=== PATIENT | female | born 1980 | race Caucasian/White ===

== ENCOUNTER 2022-10-18 16:18 | Emergency (ER) | payer OTHER ==
[2022-10-18 16:37] VITALS: BP 156/79; PULSE 103; RESP 20; TEMP 98.7; BMI 37.4
[2022-10-18] MEDS ORDERED: ACETAMINOPHEN 1000 MG/100 ML BAG IVPB ONE (17:13)
[2022-10-18] MEDS ORDERED: ONDANSETRON 4 MG/2 ML VIAL IVPUSH ONE (17:13)
[2022-10-18] MEDS ORDERED: SODIUM CHLORIDE 0.9% 500 ML INFUS.BAG IV ONE (17:13)
[2022-10-18] MEDS ORDERED: ACETAMINOPHEN INJECTION 100 ML IVPB ONE (17:34)
[2022-10-18] MEDS ORDERED: ONDANSETRON 4 MG/2 ML VIAL ONE (17:34)
[2022-10-18 18:13] LABS: BASO % 0.2 % (0-2.0); EOS % 0.8 % (0-4.5); HEMATOCRIT 40.2 % (32.4-45.2); HEMOGLOBIN 13.8 GM/dL (10.7-15.3); LYMPH % 37.1 % (8-40); MCHC 34.3 g/dl (32.0-36.0); MEAN CELL VOLUME 81.7 fl (80-96); MEAN PLT VOLUME 9.9 fl (7.5-11.1); MONO % 6.6 % (3.8-10.2); NEUT % 55.3 % (42.8-82.8); PLATELET COUNT 241 10^3/uL (134-434); RBC 4.92 M/mm3 (3.60-5.2); RDW 13.8 % (11.6-15.6); WHITE BLOOD COUNT 7.1 K/mm3 (4.0-10.0)
[2022-10-18 18:33] LABS: ALBUMIN 3.9 g/dl (3.4-5.0); BLOOD UREA NITROGEN 9.2 mg/dL (7-18); CALCIUM 9.8 mg/dL (8.5-10.1)
[2022-10-18 18:36] LABS: CREATININE 0.7 mg/dL (0.55-1.3)
[2022-10-18 18:38] LABS: BILIRUBIN,TOTAL 0.5 mg/dL (0.2-1)
[2022-10-18] MEDS ORDERED: KETOROLAC TROMETHAMINE 30 MG/1 ML VIAL IVPUSH ONE (21:49)
[2022-10-18] MEDS ORDERED: KETOROLAC TROMETHAMINE 30 MG/1 ML VIAL ONE (21:56)
[2022-10-18 22:11] LABS: EPI CELLS 25 /uL (0-25.1); HYALINE CASTS 0 /uL (0-3.1); PH,URINE 6.5 (5.0-8.0); URINE APPEARANCE CLEAR; URINE BACTERIA 504 /uL (0-1359); URINE BILIRUBIN NEGATIVE (NEGATIVE); URINE COLOR YELLOW; URINE GLUCOSE (UA) 3+ (NEGATIVE); URINE KETONE 2+ (NEGATIVE); URINE LEUK ESTERASE TRACE (NEGATIVE); URINE NITRITE NEGATIVE (NEGATIVE); URINE PROTEIN NEGATIVE (NEGATIVE); URINE RBC 13 /uL (0-23.9); URINE UROBILINOGEN 0.2 mg/dL (0.2-1.0); URINE WBC 47 /uL (0-25.8)
== END 2022-10-18 23:55 | disposition home or self-care (01) ==
LOC: JER 16:18
PROC: 3E033NZ Introduction of Analgesics, Hypnotics, Sedatives into Peripheral Vein, Percutaneous Approach (ICD-10-PCS; principal; 2022-10-18)
PROC: 3E033GC Introduction of Other Therapeutic Substance into Peripheral Vein, Percutaneous Approach (ICD-10-PCS; 2022-10-18)
PROC: 3E033GC Introduction of Other Therapeutic Substance into Peripheral Vein, Percutaneous Approach (ICD-10-PCS; 2022-10-18)
DX: N83.202 Unspecified ovarian cyst, left side (principal); K57.90 Diverticulosis of intestine, part unspecified, without perforation or abscess without bleeding; R11.2 Nausea with vomiting, unspecified; R10.9 Unspecified abdominal pain
CPT/HCPCS: 36415; 74177-TC; 80053; 81003; 83690; 84703; 85025; 87086; 87186; 99285-25; Q9967

== ENCOUNTER 2023-04-30 16:32 | Observation (INO) | payer OTHER ==
[2023-04-30 16:45] VITALS: BMI 37.8
[2023-04-30 18:06] LABS: EPI CELLS 16 /uL (0-25.1); HYALINE CASTS 0 /uL (0-3.1); PH,URINE 6.5 (5.0-8.0); URINE APPEARANCE CLEAR; URINE BACTERIA 332 /uL (0-1359); URINE BILIRUBIN NEGATIVE (NEGATIVE); URINE COLOR YELLOW; URINE GLUCOSE (UA) 3+ (NEGATIVE); URINE KETONE NEGATIVE (NEGATIVE); URINE LEUK ESTERASE TRACE (NEGATIVE); URINE NITRITE NEGATIVE (NEGATIVE); URINE PROTEIN NEGATIVE (NEGATIVE); URINE RBC 4 /uL (0-23.9); URINE WBC 19 /uL (0-25.8)
[2023-04-30 18:08] LABS: BASO % 0.6 % (0-2.0); EOS % 1.3 % (0-4.5); HEMATOCRIT 38.9 % (32.4-45.2); LYMPH % 33.1 % (8-40); MCHC 33.3 g/dl (32.0-36.0); MEAN CELL VOLUME 84.1 fl (80-96); MEAN PLT VOLUME 10.6 fl (7.5-11.1); MONO % 6.2 % (3.8-10.2); NEUT % 58.8 % (42.8-82.8); PLATELET COUNT 246 10^3/uL (134-434); RBC 4.62 M/mm3 (3.60-5.2); RDW 13.4 % (11.6-15.6); WHITE BLOOD COUNT 8.4 K/mm3 (4.0-10.0)
[2023-04-30 18:30] LABS: ALBUMIN 3.8 g/dl (3.4-5.0); BLOOD UREA NITROGEN 12.2 mg/dL (7-18)
[2023-04-30 18:33] LABS: CREATININE 0.5 mg/dL (0.55-1.3)
[2023-04-30 18:35] LABS: BILIRUBIN,TOTAL 0.3 mg/dL (0.2-1); TOT PROT 7.6 g/dl (6.4-8.2)
[2023-04-30] MEDS ORDERED: SODIUM CHLORIDE 0.9% 500 ML INFUS.BAG IV ONE ×2 (18:42→20:48)
[2023-05-01] MEDS: LACTATED RINGERS SOLUTION 1,000 ML/1,000 ML INFUS.BAG IV SCH (02:51)
[2023-05-01 08:25] LABS: CHOLESTEROL 122 mg/dL (50-200)
[2023-05-01 08:26] LABS: LDL CHOLESTEROL (ONLY SJRH) 57 mg/dL (5-100)
[2023-05-01] MEDS: INSULIN SLIDING SCALE (NOVOLOG) 1 VIAL SQ SCH ×4 (08:26→21:57)
[2023-05-01 08:28] LABS: HDL CHOLESTEROL 56 mg/dL (40-60)
[2023-05-01] MEDS ORDERED: INSULIN REGULAR HUMAN 100 UNITS/ML *VIAL ONE (08:29)
[2023-05-01 08:36] LABS: POTASSIUM 4.3 mmol/L (3.5-5.1)
[2023-05-01 08:42] LABS: CALCIUM 8.1 mg/dL (8.5-10.1)
[2023-05-01 08:43] LABS: ALBUMIN 3.1 g/dl (3.4-5.0); BLOOD UREA NITROGEN 8.3 mg/dL (7-18); MAGNESIUM 1.9 mg/dL (1.8-2.4)
[2023-05-01 08:46] LABS: BASO % 0.2 % (0-2.0); CREATININE 0.4 mg/dL (0.55-1.3); EOS % 1.4 % (0-4.5); HEMATOCRIT 35.8 % (32.4-45.2); HEMOGLOBIN 12.2 GM/dL (10.7-15.3); LYMPH % 36.1 % (8-40); MCH 28.3 pg (25.7-33.7); MCHC 34.2 g/dl (32.0-36.0); MEAN CELL VOLUME 82.7 fl (80-96); MEAN PLT VOLUME 10.9 fl (7.5-11.1); MONO % 6.9 % (3.8-10.2); NEUT % 55.4 % (42.8-82.8); PHOSPHOROUS 2.7 mg/dL (2.5-4.9); PLATELET COUNT 200 10^3/uL (134-434); RBC 4.33 M/mm3 (3.60-5.2); RDW 13.5 % (11.6-15.6); WHITE BLOOD COUNT 8.4 K/mm3 (4.0-10.0)
[2023-05-01 08:47] LABS: BILIRUBIN,TOTAL 0.5 mg/dL (0.2-1); TOT PROT 6.3 g/dl (6.4-8.2)
[2023-05-01 09:38] LABS: EPI CELLS 35 /uL (0-25.1); HYALINE CASTS 0 /uL (0-3.1); URINE APPEARANCE CLEAR; URINE BACTERIA 1435 /uL (0-1359); URINE BILIRUBIN NEGATIVE (NEGATIVE); URINE COLOR YELLOW; URINE GLUCOSE (UA) 1+ (NEGATIVE); URINE KETONE NEGATIVE (NEGATIVE); URINE LEUK ESTERASE 1+ (NEGATIVE); URINE NITRITE NEGATIVE (NEGATIVE); URINE PROTEIN NEGATIVE (NEGATIVE); URINE RBC 2 /uL (0-23.9); URINE UROBILINOGEN 0.2 mg/dL (0.2-1.0); URINE WBC 19 /uL (0-25.8)
[2023-05-01] MEDS: ENOXAPARIN NA (PORCINE) 40 MG/0.4 ML DISP.SYRIN SQ SCH (09:38)
[2023-05-01] MEDS ORDERED: ENOXAPARIN NA (PORCINE) 40 MG/0.4 ML DISP.SYRIN SQ ONE (09:40)
[2023-05-02] MEDS: LACTATED RINGERS SOLUTION 1,000 ML/1,000 ML INFUS.BAG IV SCH (02:09)
[2023-05-02] MEDS ORDERED: ONDANSETRON 4 MG/2 ML VIAL IVPUSH PRN (08:14)
[2023-05-02] MEDS: INSULIN SLIDING SCALE (NOVOLOG) 1 VIAL SQ SCH ×2 (08:33→11:03)
[2023-05-02] MEDS ORDERED: LACTATED RINGERS SOLUTION 1,000 ML/1,000 ML INFUS.BAG IV SCH (09:34)
[2023-05-02] MEDS: ENOXAPARIN NA (PORCINE) 40 MG/0.4 ML DISP.SYRIN SQ SCH (11:02)
[2023-05-02 12:54] VITALS: TEMP 98.2
[2023-05-02 14:06] LABS: POTASSIUM 3.9 mmol/L (3.5-5.1)
[2023-05-02 14:08] LABS: CALCIUM 9.1 mg/dL (8.5-10.1)
[2023-05-02 14:09] LABS: ALBUMIN 3.4 g/dl (3.4-5.0); BLOOD UREA NITROGEN 7.8 mg/dL (7-18)
[2023-05-02 14:12] LABS: CREATININE 0.6 mg/dL (0.55-1.3)
[2023-05-02 14:13] LABS: BILIRUBIN,TOTAL 0.6 mg/dL (0.2-1)
[2023-05-02 14:14] LABS: TOT PROT 7.4 g/dl (6.4-8.2)
[2023-05-02] MEDS ORDERED: PANTOPRAZOLE SODIUM 40 MG VIAL IVPUSH ONE (16:27)
[2023-05-02 17:31] VITALS: BP 140/80; PULSE 74; RESP 16
== END 2023-05-02 17:32 | disposition home or self-care (01) ==
LOC: JER 16:32 → JERBED 20:48
PROVIDERS: ADMIT Internal Medicine; ATTEND Internal Medicine
PROC: 3E023GC Introduction of Other Therapeutic Substance into Muscle, Percutaneous Approach (ICD-10-PCS; principal; 2023-04-30)
PROC: 3E013VG Introduction of Insulin into Subcutaneous Tissue, Percutaneous Approach (ICD-10-PCS; 2023-04-30)
PROC: 3E0337Z Introduction of Electrolytic and Water Balance Substance into Peripheral Vein, Percutaneous Approach (ICD-10-PCS; 2023-04-30)
PROC: 3E033NZ Introduction of Analgesics, Hypnotics, Sedatives into Peripheral Vein, Percutaneous Approach (ICD-10-PCS; 2023-04-30)
DX: K85.90 Acute pancreatitis without necrosis or infection, unspecified (principal); E11.65 Type 2 diabetes mellitus with hyperglycemia; R10.31 Right lower quadrant pain; R94.8 Abnormal results of function studies of other organs and systems; E66.8 Other obesity; K76.0 Fatty (change of) liver, not elsewhere classified; E78.1 Pure hyperglyceridemia; N83.202 Unspecified ovarian cyst, left side; Z79.84 Long term (current) use of oral hypoglycemic drugs
CPT/HCPCS: 36415; 74177-TC; 76705-TC; 80053; 80061; 81003; 82962; 83036; 83690; 83735; 84100; 84703; 85025; 87086; 93005; 93010; 96360; 96361; 96372; 96374; 99285-25; G0378

== ENCOUNTER 2023-07-28 15:29 | Emergency (ER) | payer OTHER ==
[2023-07-28 15:42] VITALS: BP 150/81; RESP 17; TEMP 98.5; BMI 35.6
[2023-07-28] MEDS ORDERED: ACETAMINOPHEN 500 MG TABLET (FP) PO ONE (18:31)
[2023-07-28] MEDS ORDERED: DIPHTH,PERTUSS(ACELL),TET 0.5 ML DISP.SYRIN IM ONE ×3 (18:31→18:34)
[2023-07-28] MEDS ORDERED: ACETAMINOPHEN 500 MG TABLET (FP) ONE (18:32)
[2023-07-28 19:15] VITALS: PULSE 80
== END 2023-07-28 19:14 | disposition home or self-care (01) ==
LOC: JERFT 15:29
DX: S61.402A Unspecified open wound of left hand, initial encounter (principal); M25.532 Pain in left wrist; W18.39XA Other fall on same level, initial encounter
CPT/HCPCS: 73110-TC-RT-FY; 73130-TC-RT-FY; 90715; 99283-25

== ENCOUNTER 2024-03-30 16:06 | Emergency (ER) | payer OTHER ==
[2024-03-30 16:16] VITALS: BP 127/83; PULSE 99; RESP 16; TEMP 98.6; BMI 34.9
[2024-03-30] MEDS ORDERED: IBUPROFEN 600 MG TABLET (FP) PO ONE (17:33)
[2024-03-30] MEDS ORDERED: AMOX TR/POT CLAV 875MG/125MG TABLETS (FP) ONE (17:34)
[2024-03-30] MEDS ORDERED: DIPHTH,PERTUSS(ACELL),TET 0.5 ML DISP.SYRIN IM ONE (17:34)
[2024-03-30] MEDS: IBUPROFEN 600 MG TABLET (FP) PO ONE (17:43)
[2024-03-30] MEDS: AMOX TR/POT CLAV 875MG/125MG TABLETS (FP) PO ONE (17:44)
[2024-03-30] MEDS: DIPHTH,PERTUSS(ACELL),TET 0.5 ML DISP.SYRIN IM ONE (18:00)
[2024-03-30 20:20] LABS: HIV INTERPRETATION NEGATIVE (NEGATIVE)
== END 2024-03-30 18:44 | disposition home or self-care (01) ==
LOC: JERFT 16:06
DX: S61.431A Puncture wound without foreign body of right hand, initial encounter (principal); W54.0XXA Bitten by dog, initial encounter
CPT/HCPCS: 36415; 73110-TC-RT-FY; 73130-TC-RT-FY; 86803; 87389; 99284-25